=== PATIENT | male | born 1975 | race Caucasian/White ===

== ENCOUNTER 2017-02-02 17:45 | Emergency (ER) | payer OTHER ==
[2017-02-02] MEDS ORDERED: DIPH,PERTUSS(ACELL),TET VAC/PF 0.5 ML DISP.SYRIN IM ONE ×2 (17:59→18:00)
[2017-02-02] MEDS ORDERED: BUPIVACAINE HCL/PF 5 MG/ML 10ML VIAL IJ ONE (18:02)
[2017-02-02] MEDS ORDERED: BUPIVACAINE HCL/PF 5 MG/ML 10ML VIAL IV ONE (18:03)
[2017-02-02] MEDS ORDERED: CEPHALEXIN 250 MG CAPSULE PO ONE (18:34)
[2017-02-02] MEDS ORDERED: NEOMYCIN SU/BACITRAC ZN/POLY 1 EACH OINT.PACK TP ONE (18:34)
--- NOTE | 2017-02-02 18:38 | ED Physician Documentation ---
General Adult - HISTORIAN Historian: patient - HPI Stated Complaint: laceration Chief Complaint: Laceration/Recheck/Suture Additional Information: Cutting a piece of floor transition when it snapped off and cut his finger. Unknown last tetanus. - ROS CONST: no problems - PAST HX Past History: none Surgeries/Procedures: other (left shoulder repair, torn labrum) Allergies/Adverse Reactions: Allergies Allergy/AdvReac Type Severity Reaction Status Date / Time No Known Allergies Allergy Verified 02/02/17 17:52 Home Medications: Ambulatory Orders Medication Instructions Recorded L-Lysine 500 mg PO DAILY u2 04/09/13 Cephalexin [Keflex] 500 mg PO Q6H #40 capsule 02/02/17 - SOCIAL HX Smoking History: non-smoker - FAMILY HX Family History: No - VITAL SIGNS Vital Signs: Vital Signs Temp Pulse Resp BP Pulse Ox 98.9 F 74 18 129/96 97 02/02/17 17:56 02/02/17 17:56 02/02/17 17:56 02/02/17 17:56 02/02/17 17:56 - REVIEWED ASSESSMENTS Nursing Assessment Reviewed: Yes Vitals Reviewed: Yes Procedures Wound Location: upper extremity Wound Length: 3 Wound's Depth, Shape: linear Wound Explored: clean Irrigated w/ Saline (ccs): 100 Betadine Prep?: No (chlorhexadine) Anesthesia: 0.5% Sensorcaine Volume of Anesthetic: 1.5 Wound Repaired With: sutures Suture Size/Type: 4:0 Number of Sutures: 5 Layer Closure?: No Sterile Dressing Applied?: Yes Splint Applied?: No ED Results Lab/Radiology - Orders Orders: ED Orders Category Date Time Status Apply occlusive dressing D Care 02/02/17 18:34 Ordered Bupivacaine HCl/Pf [Marcaine 0.5%] Med 02/02/17 18:02 Once 50 mg IJ NOW ONE Bupivacaine HCl/Pf [Marcaine 0.5%] Med 02/02/17 18:03 Discontinued 50 mg IV .STK-MED ONE Cephalexin [Keflex] Med 02/02/17 18:34 Once 500 mg PO NOW ONE Diph,Pertuss(Acell),Tet Vac/Pf [Adacel] Med 02/02/17 17:59 Once 0.5 ml IM .ONCE ONE Diph,Pertuss(Acell),Tet Vac/Pf [Adacel] Med 02/02/17 18:00 Discontinued 0.5 ml IM .STK-MED ONE Neomycin Bernal/Bacitrac Zn/Poly [Triple Antibiotic Med 02/02/17 18:34 Once Ointment] 1 each TP NOW ONE General Adult Physical Exam - PHYSICAL EXAM GENERAL APPEARANCE: no distress EENT: eye inspection normal, ENT inspection normal NECK: normal inspection, supple RESPIRATORY: no resp distress BACK: other (movements w/o pain) SKIN: warm/dry, normal color, other (3 cm lac left 2nd finger, dorsal surface middle phalanx) EXTREMITIES: normal range of motion (gait), no evidence of injury NEURO: CN's nml as tested, motor nml, sensation nml Discharge Clincal Impression: Finger laceration Qualifiers: Encounter type: initial encounter Qualified Code(s): S61.219A - Laceration without foreign body of unspecified finger without damage to nail, initial encounter Prescriptions: Cephalexin [Keflex] 500 mg PO Q6H #40 capsule Home Medications: Ambulatory Orders L-Lysine 500 mg PO DAILY u2 04/09/13 Cephalexin [Keflex] 500 mg PO Q6H #40 capsule 02/02/17 Condition: Good Disposition: 01 HOME, SELF-CARE Decision to Admit: NO Decision Time: 18:37
[2017-02-02 18:43] VITALS: BP 127/74
== END 2017-02-02 18:42 | disposition home or self-care (01) ==
LOC: ED 17:45
DX: S61.213A Laceration without foreign body of left middle finger without damage to nail, initial encounter (principal); X58.XXXA Exposure to other specified factors, initial encounter; Y93.9 Activity, unspecified; Y99.9 Unspecified external cause status
CPT/HCPCS: 90715; J3490